=== PATIENT | female | born 1975 | race African-American/Black ===

== ENCOUNTER 2016-12-21 08:17 | Emergency (ER) | payer MEDICAID, OTHER ==
[~2016-12-21] VITALS: Ht 160 cm; Wt 78.1 kg
[2016-12-21 08:18] VITALS: Ht 160 cm; Wt 78.1 kg
--- NOTE | 2016-12-21 09:17 | RADRPT ---
PROCEDURE: US OB. CLINICAL INDICATION: Vaginal bleeding TECHNIQUE: Transabdominal and endovaginal imaging of the gravid uterus is available for review COMPARISON: None available FINDINGS: There is a single intrauterine demonstrating a heart rate of 159 bpm. The crown-rump roby th equals 4.47 cm, giving an estimated gestational age of 11 weeks 2 days by ultrasound criteria. N o subchorionic hemorrhage is identified. The ovaries are unremarkable. IMPRESSION: Single live intrauterine with an estimated gestational age of 11 weeks 2 days by ultrasoun d criteria and an estimated date of delivery of 07/10/2017. RPTAT: HH .Araceli Nicholas MD, MD Date Time Electronically viewed and signed by .Araceli Nicholas MD, on 12/21/2016 09:17 .G/
[2016-12-21 09:19] LABS: ADD SCAN DIFF NO
[2016-12-21 09:29] LABS: BASOPHILS % 0.4 % (0.0-2.0); EOSINOPHILS # 0.1 10^3/ul (0.0-0.5); EOSINOPHILS % 1.2 % (0.0-7.0); HEMOGLOBIN 11.5 g/dl (12.0-16.0); LYMPHOCYTES # 1.3 10^3/ul (0.8-2.9); LYMPHOCYTES % 25.9 % (15.0-51.0); MEAN CORPUSCULAR HEMOGLOBIN 26.2 pg (29.0-33.0); MEAN CORPUSCULAR HGB CONC 31.9 g/dl (32.0-37.0); MEAN PLATELET VOLUME 9.2 fl (7.4-10.4); MONOCYTE # 0.5 10^3/ul (0.3-0.9); MONOCYTES % 10.6 % (0.0-11.0); NEUTROPHILS % 61.5 % (39.0-77.0); PLATELET COUNT 274 10^3/UL (140-415); RED BLOOD COUNT 4.39 10^6/ul (4.20-5.40); RED CELL DISTRIBUTION WIDTH 13.3 % (11.5-14.5); WHITE BLOOD COUNT 4.8 10^3/ul (4.8-10.8)
[2016-12-21 09:49] LABS: ADD UMIC YES; URINE BILIRUBIN (Dip) NEGATIVE (NEGATIVE); URINE BLOOD (Dip) 3+ (NEGATIVE); URINE COLOR LT. YELLOW (YELLOW); URINE GLUCOSE (Dip) NEGATIVE (NEGATIVE); URINE KETONES (Dip) NEGATIVE (NEGATIVE); URINE LEUKOCYTE ESTERASE (Dip) NEGATIVE (NEGATIVE); URINE NITRITE (Dip) NEGATIVE (NEGATIVE); URINE TOTAL PROTEIN (Dip) NEGATIVE (NEGATIVE); URINE UROBILINOGEN (Dip) 0.2 E.U./dL (0.1-1.0)
[2016-12-21 10:01] LABS: BACTERIA,URINE MANY
[2016-12-21] MEDS ORDERED: FER325 PO (11:00)
--- NOTE | 2016-12-21 11:07 | ERD ---
ER Documentation Chief Complaint Date/Time DATE: 12/21/16 TIME: 11:05 Chief Complaint 11 weeks bleeding HPI 41-year-old female is approximately 11 weeks , 2 comes to the emergency room vaginal being that occurred this morning. She states that she passed a small blood, she is continuing to have mild bleeding. She has suprapubic pelvic cramping also goes to her back as well. Her ultrasound was done with her OB yesterday afternoon that was normal. According to her ultrasound her last menstrual period was in October however she recalls that her last menstrual period was in September 2016. She denies any fevers, chills, dizziness or shortness of breath. ROS All systems reviewed and are negative except as per history of present illness. Medications Home Meds Active Scripts Ferrous Sulfate* (Ferrous Sulfate*) 325 Mg Tabec, 325 MG PO BID, #90 TAB Prov:MARQUEZ MESSER PA-C 12/21/16 Allergies Allergies: Coded Allergies: No Known Allergy (Verified Allergy, Unknown, 09/11/07) PMhx/Soc Hx Alcohol Use: No Hx Substance Use: No Hx Tobacco Use: No Smoking Status: Never smoker Physical Exam Vitals Vital Signs Date Time Temp Pulse Resp B/P Pulse Ox O2 Delivery O2 Flow Rate FiO2 12/21/16 08:18 98.1 92 18 139/90 99 Physical Exam Const: [] Head: Atraumatic Eyes: Normal Conjunctiva ENT: Normal External Ears, Nose and Mouth. Neck: Full range of motion..~ No meningismus. Resp: Clear to auscultation bilaterally Cardio: Regular rate and rhythm, no murmurs Abd: Soft, non tender, non distended. Normal bowel sounds Skin: No petechiae or rashes Back: No midline or flank tenderness Ext: No cyanosis, or edema Neur: Awake and alert Psych: Normal Mood and Affect Result Diagram: 12/21/16 0912 Results 24 hrs Laboratory Tests Test 12/21/16 09:12 12/21/16 09:15 White Blood Count 4.810^3/ul Red Blood Count 4.3910^6/ul Hemoglobin 11.5g/dl Hematocrit 36.0% Mean Corpuscular Volume 82.0fl Mean Corpuscular Hemoglobin 26.2pg Mean Corpuscular Hemoglobin Concent 31.9g/dl Red Cell Distribution Width 13.3% Platelet Count 61263^3/UL Mean Platelet Volume 9.2fl Neutrophils % 61.5% Lymphocytes % 25.9% Monocytes % 10.6% Eosinophils % 1.2% Basophils % 0.4% Nucleated Red Blood Cells % 0.0/100WBC Neutrophils # 3.010^3/ul Lymphocytes # 1.310^3/ul Monocytes # 0.510^3/ul Eosinophils # 0.110^3/ul Basophils # 0.010^3/ul Nucleated Red Blood Cells # 0.010^3/ul Beta HCG, Quantitative 61448.0mIU/ml Urine Color LT. YELLOW Urine Clarity CLEAR Urine pH 7.0 Urine Specific [place] 1.010 Urine Ketones NEGATIVE Urine Nitrite NEGATIVE Urine Bilirubin NEGATIVE Urine Urobilinogen 0.2 E.U./dL Urine Leukocyte Esterase NEGATIVE Urine Microscopic RBC 10-25/HPF Urine Microscopic WBC 5-10/HPF Urine Epithelial Cells MODERATE Urine Amorphous Phosphates MANY Urine Bacteria MANY Urine Hemoglobin 3+ Urine Glucose NEGATIVE% Urine Total Protein NEGATIVE PROCEDURE: US OB. CLINICAL INDICATION: Vaginal bleeding TECHNIQUE: Transabdominal and endovaginal imaging of the gravid uterus is available for review COMPARISON: None available FINDINGS: There is a single intrauterine demonstrating a heart rate of 159 bpm. The crown-rump length equals 4.47 cm, giving an estimated gestational age of 11 weeks 2 days by ultrasound criteria. No subchorionic hemorrhage is identified. The ovaries are unremarkable. IMPRESSION: Single live intrauterine with an estimated gestational age of 11 weeks 2 days by ultrasound criteria and an estimated date of delivery of 2016. RPTAT: HH .Araceli Nicholas MD, Date Time Electronically viewed and signed by .Araceli Nicholas MD, on 12/21/2016 09 :17 .G/ CC: MARQUEZ MESSER PA-C Procedures/MDM 41-year-old female presents with vaginal bleeding, differential diagnosis includes threatened versus incomplete versus missed . Pelvic ultrasound shows a single live intrauterine 11 weeks and 2 days, no adnexal masses. She was given strict ER return precautions, also was advised that there is possibly a miscarriage secondary to bleeding. She will be given copies of her blood work as well as her ultrasound. Her type and Rh is O+, there is no indication for RhoGam. She is hemodynamically stable, there are no signs of hemorrhage or hemodynamic instability. She was asked to recheck closely with her OB. Departure Diagnosis: Primary Impression: Vaginal bleeding in patient at less than 20 weeks ges... Condition: Good Patient Instructions: Bleeding During Early Additional Instructions: Patient was advised to follow-up with their OB in 3-4 days for a recheck examination. If they were to develop any worsening symptoms sooner, including heavy vaginal bleeding or pelvic pain, they are to return to the ER for further evaluation. MARQUEZ MESSER PA-C December 21, 2016 11:07
[2016-12-21 11:15] VITALS: BP 132/70; PULSE 64; RESP 18; TEMP 97.9
== END 2016-12-21 11:15 | disposition home or self-care (01) ==
LOC: FTE 08:17
DX: O20.9 Hemorrhage in early pregnancy, unspecified (principal); R10.2 Pelvic and perineal pain; Z3A.11 11 weeks gestation of pregnancy
CPT/HCPCS: 36415; 76801; 81001; 81003; 84702; 85025; 86900; 86901

== ENCOUNTER 2017-04-14 10:43 | Outpatient (CLI) | payer MEDICAID, OTHER ==
[~2017-04-14] VITALS: Ht 167.6 cm; Wt 72.1 kg
[~2017-04-14 10:43] MED LIST: FER325 PO
[2017-04-14 11:36] VITALS: Ht 167.6 cm; Wt 72.1 kg
[2017-04-14 11:37] VITALS: BP 131/71; PULSE 85; RESP 20
--- NOTE | 2017-04-14 12:26 | PN ---
Triage Information Date/Time Reason for visit: Shoulder pain Weeks of Gestation 27 week /Para G 2 P1 Diabetes: none Hypertention: none Objective Vital Signs Date Time Temp Pulse Resp B/P Pulse Ox O2 Delivery O2 Flow Rate FiO2 04/14/17 11:37 98.0 85 20 131/71 Room Air Heart Rate: 130's Assessment/Plan Recommended biophysical profile if result is 8/8 she can be sent to the emergency room for elevation of her shoulder pain SHAI CHAN MD Apr 14, 2017 12:26
--- NOTE | 2017-04-14 12:34 | RADRPT ---
PROCEDURE: US OB. CLINICAL INDICATION: Low RIGOBERTO TECHNIQUE: Transabdominal views of the pelvis are available for review. COMPARISON: None. FINDINGS: There is a single intrauterine gestation in a breech position. The heart rate is present at 121 bpm. The placenta is anterior. There is no evidence of placenta previa or a placental abruption. The RIGOBERTO measures 13.6 cm. RPTAT: AA IMPRESSION: Normal RIGOBERTO of 13.6 cm. Breech presentation. Physician Adin Date Time Electronically viewed and signed by Gerson Britt Physician on 04/14/2017 12:34 RA/
--- NOTE | 2017-04-14 13:48 | TRIAGE ---
OB Triage Datetime Report Generated by CPN: 04/14/2017 13:48 Datetime: 04/14/2017 12:54 Labor Evaluation Frequency: occasional irritability Monitor Mode: External Quality: Mild Resting Tone [place]: Relaxed Contraction Comments: pt does not feel contractions, or cramping. denies leaking or bleeding from vagina. pt dschged after u/s and monitoring. Heart Rate FHR Baseline Rate: 130 Monitor Mode: External US FHR Baseline Changes: No Baseline Change Variability: Moderate 6-25 bpm Accelerations: 15X15 Decelerations: None Category: Category I Datetime: 04/14/2017 11:46 Labor Evaluation Frequency: 0 Monitor Mode: External Resting Tone [place]: Relaxed Heart Rate FHR Baseline Rate: 130 Monitor Mode: External US FHR Baseline Changes: No Baseline Change Variability: Moderate 6-25 bpm Accelerations: 15X15 Decelerations: None Category: Category I Datetime: 04/14/2017 11:25 Assessment Type: Triage Time of Arrival: 04/14/2017 10:35 EGA: 27.3 Arrived From: Home Chief Complaint: pain in left shoulder Movement: Present Contractions: Denies/Absent Rupture of Membranes: Denies Vaginal Bleeding: None Vaginal Discharge: Denies Recent Sexual Intercouse: Denies Abdominal Trauma: Not Applicable Patient Complaints: Other Time Provider Notified: 04/14/2017 11:02 Provider Notified: jennifer Maternal Assessment Level of Consciousness: Fully Conscious DTR's/Clonus: DTRs 2+; No Clonus Headache: Denies Blurred Vision: No Respiratory Effort: Unlabored; Regular Rhythm; Equal Expansion Breath Sounds, Left: Clear and Equal Breath Sounds, Right: Clear and Equal Nausea/Vomiting: Denies RUQ Epigastric Pain: Denies Facial Edema: None Fall Risk Assessment History of Falling: (0) No Secondary Diagnosis: (0) No Ambulatory Aid: (0) Bedrest/Nurse Assist IV Therapy: (0) No Gait: (0) Normal/Bedrest/Immobile Mental Status: (0) Oriented to Own Ability Fall Score: 0 Fall Risk Score Definition: No Risk: No action required
[2017-04-14] MEDS ORDERED: TYL500 PO (17:30)
== END 2017-04-14 13:40 | disposition home or self-care (01) ==
LOC: OBT 10:43 → L-D 10:44 → OBT 13:40
PROVIDERS: ATTEND Obstetrics & Gynecology
DX: O26.892 Other specified pregnancy related conditions, second trimester (principal); Z3A.27 27 weeks gestation of pregnancy; M25.512 Pain in left shoulder
CPT/HCPCS: 76815; Z7500; G0463

== ENCOUNTER 2017-04-14 13:55 | Emergency (ER) | payer MEDICAID ==
[~2017-04-14] VITALS: Ht 167.6 cm; Wt 73.0 kg
[2017-04-14 14:17] VITALS: Ht 167.6 cm; Wt 73.0 kg
[2017-04-14] MEDS ORDERED: ACETAMINOPHEN 500 MG TAB PO STA (16:53)
[2017-04-14] MEDS ORDERED: TYL500 PO (17:30)
--- NOTE | 2017-04-14 17:38 | ERD ---
ER Documentation Chief Complaint Date/Time DATE: 04/14/17 TIME: 17:32 Chief Complaint LT SHOURDER PAIN SINCE YESTERDAY , 23 WEEKS PREG , CLEARED BY OB HPI This is a 42-year-old female that presents to the ER with left shoulder pain that started yesterday. Patient states that her shoulder pain is severe and radiates down her entire arm. She denies any numbness or tingling of her arm. She did admit to chest pain however denies any shortness of breath. Pain is worse whenever she tries to lift up her shoulder. She did not have any trauma. Patient is currently 27 weeks she denies any vaginal bleeding, vaginal discharge or pelvic pain. Patient denies any urinary frequency or dysuria. She denies any epigastric pain or right upper quadrant pain. ROS 12 point review of systems was done, all negative except per HPI. Medications Home Meds Active Scripts Acetaminophen* (Tylenol*) 500 Mg Tab, 1000 MG PO Q8H Y for PAIN AND OR ELEVATED TEMP for 5 Days, TAB Prov:CAT SORTO 04/14/17 Ferrous Sulfate* (Ferrous Sulfate*) 325 Mg Tabec, 325 MG PO BID, #90 TAB Prov:MARQUEZ MESSER PA-C 12/21/16 Allergies Allergies: Coded Allergies: No Known Allergy (Verified , 09/11/07) PMhx/Soc History of Surgery: No Anesthesia Reaction: No Hx Neurological Disorder: No Hx Respiratory Disorders: No Hx Cardiac Disorders: No Hx Psychiatric Problems: No Hx Miscellaneous Medical Probl: No Hx Alcohol Use: No Hx Substance Use: No Hx Tobacco Use: No Smoking Status: Never smoker Physical Exam Vitals Vital Signs Date Time Temp Pulse Resp B/P Pulse Ox O2 Delivery O2 Flow Rate FiO2 04/14/17 14:17 97.1 93 18 122/63 98 Physical Exam GENERAL: The patient is well developed and appropriate for usual state of health , in no apparent distress. HEENT: Atraumatic. CHEST: Clear to auscultation bilaterally. There are no rales, wheezes or rhonchi. HEART: Regular rate and rhythm. No murmurs, clicks, rubs or gallops. ABDOMEN: Soft, nontender and nondistended. EXTREMITIES: Right shoulder: The right shoulder is without obvious asymmetry or deformity when compared to the left shoulder. There is no surface trauma, ecchymosis or crepitus. No erythema warmth or swelling. Not tender to palpation over the clavicle, AC joint, acromion patient is tender to palpation to the scapula. Not tender to palpation over the bicipital groove or soft tissues. Not tender to palpation of the muscles of the sternocleidomastoid, tender to palpation over the pectoralis, not tender to palpation over the biceps triceps, tender to palpation over the deltoid and trapezius tender along the rotator cuff. Patient has painful extension of the left elbow painful internal rotation painful abduction. Unable to perform drop arm test secondary to pain. No axillary tenderness or lymphadenopathy. Nerve normal sensation over the deltoid distal motor neurovascular status is intact. Patient has full and nonpainful range of motion of the elbow and wrist. NEURO: Alert and oriented. Cranial nerves II through XII are intact. Motor strength in all 4 extremities with 5/5 strength. Sensation grossly intact. Normal speech and gait. SKIN: There is no apparent rash or petechia. The skin is warm and dry. Results 24 hrs Current Medications Medications (Trade) Dose Ordered Sig/Tahir Route PRN Reason Start Time Stop Time Status Last Admin Dose Admin Acetaminophen (Tylenol Tab) 1,000 mg ONCE STAT PO 04/14/17 16:53 04/14/17 16:54 DC 04/14/17 17:00 Procedures/MDM Differential diagnosis includes but is not limited to fracture, dislocation, AC separation, rotator cuff test, bursitis, tendinitis, AAA, CAD, cholecystitis, acute UT. This is a 42-year-old female presents here with left shoulder pain that started yesterday. At this time suspicion for cardiac etiology is low patient did complain of some chest pain, however was reproducible on physical examination associated with shoulder pain. EKG was done [address] elevation or T-wave inversion EKG was signed by Dr. Burdick. Patient did not have any shortness of breath she denied any abdominal pain suspicion for referred acute abdominal pain is low. Patient has not had any trauma therefore I doubt fracture dislocation at this time benefits outweighed the risks of obtaining x- ray as patient is currently . Through shared medical decision-making patient wanted to try Tylenol in a sling before getting any sort of imaging that may affect the baby. Patient was put in a sling, she was neurovascularly intact before and after sling application, he will be sent home with Tylenol. She is to follow-up with her primary care doctor within 1-2 days or return to ER sooner if symptoms worsen. My medical decision making was shared with the patient she understands and agrees with plan. Departure Diagnosis: Primary Impression: Shoulder pain Condition: Stable Patient Instructions: Shoulder Problems Additional Instructions: Call your primary care doctor TOMORROW for an appointment during the next 1-2 days.See the doctor sooner or return here if your condition worsens before your appointment time. CAT SORTO Apr 14, 2017 17:38
== END 2017-04-14 18:46 | disposition home or self-care (01) ==
LOC: FTE 13:55
DX: M25.512 Pain in left shoulder (principal); R07.9 Chest pain, unspecified
CPT/HCPCS: 93005; Z7502; Z7610

== ENCOUNTER 2017-07-13 12:28 | Inpatient (IN) | payer MEDICAID ==
[~2017-07-13] VITALS: Ht 167.6 cm; Wt 76.4 kg
[~2017-07-13 12:28] MED LIST changes: +TYL500 PO
[2017-07-13 12:37] VITALS: Ht 167.6 cm; Wt 76.4 kg
[2017-07-13 12:38] VITALS: BP 124/74; PULSE 95; RESP 18
--- NOTE | 2017-07-13 13:53 | RADRPT ---
PROCEDURE: Biophysical profile CLINICAL INDICATION: distress. TECHNIQUE: Color and correa-scale ultrasound images of an intrauterine gestation were obtained. COMPARISON: OB ultrasound April 14, 2017 FINDINGS: A single live intrauterine gestation is identified in breech position with an estimated heart rate of 146 beats per minute. The placenta is located anteriorly and has a grade III. The cervix i s obscured by body shadows. No evidence of previa or abruption identified. RIGOBERTO is 13.9 cm. movement 2/2. tone 2/2. breathing movement 2/2. Qualitative AFV 2/2 Total biophysical profile 03/19 IMPRESSION: 03/19 biophysical profile. RPTAT: AA .Bora Tarango MD, Date Time Electronically viewed and signed by .Bora Tarango MD, on 07/13/2017 13:52 .P/
--- NOTE | 2017-07-13 14:03 | TRIAGE ---
OB Triage Datetime Report Generated by CPN: 07/13/2017 14:03 Datetime: 07/13/2017 14:00 Vaginal Exam Dilatation (cms): 0.0 Exam By: FOROOHAR Datetime: 07/13/2017 13:30 Stage of : OB Triage Maternal Assessment Level of Consciousness: Fully Conscious Labor Evaluation Frequency: 5-10 Monitor Mode: External Duration (sec)2399: 50-110 Quality: Mild Resting Tone [place]: Relaxed Heart Rate FHR Baseline Rate: 135 Monitor Mode: External US Variability: Moderate 6-25 bpm Accelerations: 15X15 Decelerations: None Pain Assessment Pain Goal: 3 Membrane Status: Intact Vaginal Bleeding: None Datetime: 07/13/2017 12:35 Assessment Type: Triage Maternal Assessment Level of Consciousness: Fully Conscious DTR's/Clonus: DTRs 2+; No Clonus Headache: Denies Blurred Vision: No Respiratory Effort: Unlabored; Regular Rhythm; Equal Expansion Breath Sounds, Left: Clear and Equal Breath Sounds, Right: Clear and Equal Nausea/Vomiting: Denies RUQ Epigastric Pain: Denies Lower Extremities Edema: None Degree: None Upper Extremities Edema: None Degree: None Facial Edema: None Fall Risk Assessment History of Falling: (0) No Secondary Diagnosis: (0) No Ambulatory Aid: (0) Bedrest/Nurse Assist IV Therapy: (0) No Gait: (0) Normal/Bedrest/Immobile Mental Status: (0) Oriented to Own Ability Fall Score: 0 Fall Risk Score Definition: No Risk: No action required Datetime: 07/13/2017 12:34 Time of Arrival: 07/13/2017 12:23 EGA: 40.2 Arrived By: Ambulatory Arrived From: Home Chief Complaint: pt here c/o DFM Movement: Absent Contractions: Denies/Absent Rupture of Membranes: Denies Vaginal Bleeding: None Vaginal Discharge: Denies Recent Sexual Intercouse: Yes Abdominal Trauma: Not Applicable Patient Complaints: None Time Provider Notified: 07/13/2017 13:50 [facility] Initial Plan: NST/BPP/SVE Datetime: 07/13/2017 12:32 Monitor Mode: External Monitor Mode: External US Datetime: 04/14/2017 11:25 EGA: 27.3 Fall Score: 0 Fall Risk Score Definition: No Risk: No action required
[2017-07-13] MEDS ORDERED: METHYLERGONOVINE 0.2 MG INJ IM PRN (14:30)
[2017-07-13] MEDS ORDERED: MISOPROSTOL 200 MCG TAB PR PRN (14:30)
[2017-07-13] MEDS ORDERED: CARBOPROST 250 MCG INJ IM PRN (14:30)
[2017-07-13] MEDS ORDERED: OXYTOCIN 30 UNITS/LR 500 ML IV PRN (14:30)
[2017-07-13] MEDS ORDERED: OXYTOCIN 30 UNITS/LR 500 ML IV SCH (14:30)
[2017-07-13] MEDS: LACTATED RINGER'S 1,000 ML IV SCH ×3 (15:15→17:09)
[2017-07-13 15:23] LABS: BASOPHILS % 0.2 % (0.0-2.0); EOSINOPHILS % 0.7 % (0.0-7.0); HEMATOCRIT 27.4 % (37.0-47.0); HEMOGLOBIN 9.1 g/dl (12.0-16.0); LYMPHOCYTES # 1.3 10^3/ul (0.8-2.9); LYMPHOCYTES % 21.9 % (15.0-51.0); MEAN CORPUSCULAR HEMOGLOBIN 26.5 pg (29.0-33.0); MEAN CORPUSCULAR HGB CONC 33.2 g/dl (32.0-37.0); MEAN CORPUSCULAR VOLUME 79.7 fl (82.0-101.0); MEAN PLATELET VOLUME 10.2 fl (7.4-10.4); MONOCYTE # 0.9 10^3/ul (0.3-0.9); MONOCYTES % 14.5 % (0.0-11.0); NEUTROPHIL # 3.7 10^3/ul (1.6-7.5); NEUTROPHILS % 62.4 % (39.0-77.0); PLATELET COUNT 273 10^3/UL (140-415); RED BLOOD COUNT 3.44 10^6/ul (4.20-5.40); RED CELL DISTRIBUTION WIDTH 14.5 % (11.5-14.5)
[2017-07-13 15:41] LABS: INR 0.96; PROTIME 12.9 Sec (11.9-14.9)
[2017-07-13 15:42] LABS: PARTIAL THROMBOPLASTIN TIME 22.6 Sec (25.0-35.0)
[2017-07-13] MEDS ORDERED: CITRIC ACID/NA CITRATE 30 ML CUP ONE (15:49)
[2017-07-13] MEDS ORDERED: ONDANSETRON 4 MG INJ ONE (15:49)
[2017-07-13] MEDS ORDERED: ONDANSETRON 4 MG INJ IV ONE (16:30)
[2017-07-13] MEDS ORDERED: CITRIC ACID/SODIUM CITRATE 15 ML CUP PO ONE (16:30)
[2017-07-13] MEDS ORDERED: morphine SULFATE/PF (10 MG/10 ML) INJ ONE (18:03)
[2017-07-13] MEDS ORDERED: PHENYLephrine (100 MCG/ML) 5ML SYG ONE ×2 (18:06→19:19)
--- NOTE | 2017-07-13 18:30 | HP ---
Date/Time of Note Date/Time of Note DATE: 07/13/17 TIME: 18:09 OB - History Hx of Present Free Text/Dictation 42 years old female 2 para 0 EDC July 11, 2017 admitted to [facility] at 40 weeks and 2 /7 days, diagnosed with breech presentation, being prepared to undergo primary , indication of the surgery including the complication of , bowel bladder injury wound hematoma and infection explained, since her hemoglobin is 9.1 hematocrit 27.3 possibility of blood transfusion as well as reaction to transfusion explained to her and she agreed to receive the 2 units of packed cells. Chief Complaint: 40 weeks 2/7 day breech Estimated Due Date: Jul 11, 2017 : 2 Para: 1 Care: Good Care Ultrasounds: Normal mid trimester US Obstetrical Complications: None Medical Complications: None Past Family/Social History * Past Medical, Surgical, Family and Obstetric Histories reviewed from chart. Rubella: immune RPR/VDRL: Negative GBS Status: Negative HBsAG: Negative OB Admission Exam Vital Signs Vital Signs Vital Signs Date Time Temp Pulse Resp B/P Pulse Ox O2 Delivery O2 Flow Rate FiO2 07/13/17 12:38 98.0 95 18 124/74 100 Room Air Physical Exam HEENT: WNL Heart: Rhythm Normal Lungs: Clear, Equal Abdomen: WNL Extremities: Normal Reflexes: Normal Cervical Dilatation: None Membranes: Intact Accelerations: Accelerations Present Decelerations: No Decelerations Intensity: Mild Last 72 hours Lab Results CBC & BMP 07/13/17 15:05 OB Assessment/Plan Reason for admission: other (40 weeks 2 days breech presentation) Other plan: . 42 years old EDC July 11 admitted to the hospital diagnosed with breech presentation being prepared to undergo primary , she is also anemic her hemoglobin is 9 hematocrit 27 possibility of 2 units of packed cell blood transfusion discussed with the patient she agreed to receive blood transfusion Complication of section including but not limited to bowel bladder injury wound infection and hematoma explained , all her questions answered we will proceed with the operation. SHAI CHAN MD Jul 13, 2017 18:20
[2017-07-13] MEDS: CEFAZOLIN 2 GM/50 ML (PMX) 50 ML IV SCH ×2 (18:35→19:21)
[2017-07-13] MEDS ORDERED: FENTAnyl 50 MCG/ML VIAL ONE (19:02)
[2017-07-13] MEDS ORDERED: SOD CHLORIDE 0.9% 1,000 ML IV ONE ×2 (19:30→20:00)
--- NOTE | 2017-07-13 19:34 | OPR ---
Operative Report Planned Procedure Free Text/Dictation Number second 2017 at 7:25 PM Procedure date Jul 13, 2017 Procedure(s) Primary for breech presentation Performed by see signature line Rolfer PADMAJA HENDERSON Anesthesiologist: CHATA MARQUES Pre-procedure diagnosis 40 weeks breech presentation Anesthesia Type: spinal Post-Procedure Post-procedure diagnosis 40 weeks breech presentation Findings Live Baby girl 8 and 9 Estimated Blood Loss: 500 - 600 mls Specimen(s) none Grafts/Implant(s) none Complication(s) none Pt Condition post procedure: stable Procedure Description Under satisfactory spinal anesthesia patient prepped and draped and placed in supine position. Pfannenstiel incision was made. Incision carried through the subcutaneous tissue. Fascia incised to the length of incision. Rectus muscle divided in midline. Peritoneum exposed and entered to a vertical incision. Exploration of abdomen revealed [gravid uterus at term normal-appearing tubes and ovaries.] Bladder flap was developed. Transverse incision was made in the lower segment of the uterus. Amniotic sac ruptured, meconium stain amniotic fluid note. Live baby girl was delivered from [place] breech delivered by assisted breech extraction shoulders delivered without any difficulty head delivered with Mauriceau maneuver.Naso oropharyngeal suction was performed. Baby handed to the team for immediate attention. Patient received 20 units of Pitocin. Placenta delivered manually intact. Uterine cavity cleaned with a wet sponge and drainage established. Uterus closed in 2 layers using Monocryl #1 in continuous fashion. Peritoneal cavity irrigated with warm saline. Sponge needle instrument reported to be correct. Abdominal peritoneum closed with 2-0 chromic catgut continuously. Fascia closed with #1 PDS in a continuous fashion. Subcutaneous tissue irrigated with warm saline and approximated with 2-0 chromic catgut skin closed with N sorb. Estimated blood loss [6-700 cc]. Urine bag containing [200] mL of [clear] urine. Patient tolerated procedure well and transferred to recovery room in good condition. SHAI CHAN MD Jul 13, 2017 19:34
[2017-07-13] MEDS ORDERED: NALOXONE (0.4 MG/ML) INJ IV PRN (21:30)
[2017-07-13] MEDS ORDERED: HYDROmorphONE (0.2 MG/ML) 10ML SYG IV PRN ×2 (21:30)
[2017-07-13] MEDS ORDERED: ZOLPIDEM 5 MG TAB PO PRN (21:30)
[2017-07-13] MEDS ORDERED: HYDROmorphONE 0.5 MG/0.5 ML SYG IV PRN ×2 (21:30)
[2017-07-13] MEDS ORDERED: DIPHENHYDRAMINE 50 MG INJ IV PRN (21:30)
[2017-07-13] MEDS ORDERED: KETOROLAC 30 MG INJ IV PRN (21:30)
[2017-07-13] MEDS ORDERED: FENTAnyl 50 MCG/ML VIAL IV PRN ×2 (21:30)
[2017-07-13] MEDS ORDERED: ONDANSETRON 4 MG INJ IV PRN ×2 (21:30)
[2017-07-13] MEDS ORDERED: METOCLOPRAMIDE 10 MG INJ IV PRN (21:30)
[2017-07-13 23:51] VITALS: BP 117/62; PULSE 77; RESP 18
[2017-07-14] MEDS ORDERED: LANOLIN 7 GM TUBE TOP PRN
[2017-07-14] MEDS ORDERED: MISOPROSTOL 200 MCG TAB PR PRN
[2017-07-14] MEDS ORDERED: METHYLERGONOVINE 0.2 MG INJ IM PRN
[2017-07-14] MEDS ORDERED: CEFAZOLIN 1 GM/50 ML (PMX) 50 ML IVPB SCH
[2017-07-14] MEDS ORDERED: OXYTOCIN 30 UNITS/LR 500 ML IV PRN
[2017-07-14] MEDS ORDERED: CARBOPROST 250 MCG INJ IM PRN
[2017-07-14] MEDS: DIPHENHYDRAMINE 50 MG INJ IV PRN ×3 (00:02→12:21)
[2017-07-14] MEDS: OXYTOCIN 30 UNITS/LR 500 ML IV SCH ×7 (00:02→23:36)
[2017-07-14 00:50] VITALS: BP 116/57; PULSE 71; RESP 18
[2017-07-14] MEDS: KETOROLAC 30 MG INJ IV PRN ×2 (03:47→14:20)
[2017-07-14 04:00] VITALS: BP 98/57; PULSE 68; RESP 18
[2017-07-14 07:30] VITALS: BP 108/57; PULSE 81; RESP 19
[2017-07-14] MEDS: SENNA/DOCUSATE NA (8.6MG/50MG) TAB PO SCH ×2 (09:00→21:00)
[2017-07-14 09:18] LABS: BASOPHILS % 0.2 % (0.0-2.0); EOSINOPHILS % 0.2 % (0.0-7.0); HEMATOCRIT 27.3 % (37.0-47.0); HEMOGLOBIN 9.3 g/dl (12.0-16.0); LYMPHOCYTES # 0.8 10^3/ul (0.8-2.9); LYMPHOCYTES % 9.1 % (15.0-51.0); MEAN CORPUSCULAR HEMOGLOBIN 27.7 pg (29.0-33.0); MEAN CORPUSCULAR HGB CONC 34.1 g/dl (32.0-37.0); MEAN CORPUSCULAR VOLUME 81.3 fl (82.0-101.0); MEAN PLATELET VOLUME 9.9 fl (7.4-10.4); MONOCYTE # 0.8 10^3/ul (0.3-0.9); MONOCYTES % 10.2 % (0.0-11.0); NEUTROPHIL # 6.6 10^3/ul (1.6-7.5); NEUTROPHILS % 80.1 % (39.0-77.0); PLATELET COUNT 179 10^3/UL (140-415); RED BLOOD COUNT 3.36 10^6/ul (4.20-5.40); RED CELL DISTRIBUTION WIDTH 14.2 % (11.5-14.5); WHITE BLOOD COUNT 8.2 10^3/ul (4.8-10.8)
[2017-07-14 12:00] VITALS: PULSE 83; RESP 19
--- NOTE | 2017-07-14 12:38 | QN ---
Documentation Comment Post day 1 Afebrile Vital signs are stable Abdomen soft, bowel sounds present, incision dry. Able to pass flatus, lochia normal, extremities normal, ambulation encouraged SHAI CHAN MD Jul 14, 2017 12:38
[2017-07-14 16:00] VITALS: BP 106/70; PULSE 86; RESP 19
[2017-07-14 20:00] VITALS: BP 108/60; PULSE 105; RESP 18
[2017-07-14] MEDS ORDERED: HYDROCODONE/APAP (5/325) TAB PO PRN ×2 (21:30)
[2017-07-14] MEDS ORDERED: OXYCODONE/ACETAMINOPHEN (5/325) TAB PO PRN ×2 (21:30)
[2017-07-15] MEDS: IBUPROFEN 600 MG TAB PO SCH ×5 (00:31→23:51)
[2017-07-15 04:00] VITALS: BP 98/58; PULSE 85; RESP 19
[2017-07-15 08:00] VITALS: BP 103/58; PULSE 76; RESP 17
[2017-07-15] MEDS: SENNA/DOCUSATE NA (8.6MG/50MG) TAB PO SCH ×2 (09:46→20:42)
--- NOTE | 2017-07-15 09:46 | QN ---
Documentation Comment Post day 2 Afebrile Vital signs are stable Abdomen soft, incision dry, bowel sounds present, no bowel movement, enema recommended. SHAI CHAN MD Jul 15, 2017 09:46
[2017-07-15] MEDS ORDERED: NA PHOSPHATE/BIPHOS 133 ML ENEMA PR ONE (10:00)
[2017-07-15 16:00] VITALS: BP 97/63; PULSE 81; RESP 16
[2017-07-15 19:20] VITALS: BP 116/70; PULSE 88; RESP 19
[2017-07-16 04:10] VITALS: BP 112/68; PULSE 77; RESP 20
[2017-07-16] MEDS: IBUPROFEN 600 MG TAB PO SCH ×2 (05:43→12:24)
[2017-07-16 08:09] VITALS: BP 137/61; PULSE 80; RESP 18
[2017-07-16] MEDS ORDERED: DIPHTH/TET/ACEL PERTUSS (ADULT) 0.5 ML VIAL IM* ONE (09:00)
[2017-07-16] MEDS: SENNA/DOCUSATE NA (8.6MG/50MG) TAB PO SCH (09:04)
--- NOTE | 2017-07-16 12:20 | PD.PPDC ---
CHIEF ARCHITECT Discharge Instruction Condition Patient Condition: Good Activity/Restrictions Activity: Normal Activity May Shower Restrictions: No Exercising No Lifting No Driving No Sexual Activity Nothing in the Vagina No [place] No Tampons, douche Wound/Drain Care Instructions Wound/Drain Care Instructions: Remove Steri Strips in 1 week Follow-up Follow-up with Physician: 1, Week/Weeks Provider Information: Post instructions given recommended to make appointment to be seen at the clinic in 1 week Return to clinic for BUSINESS RELATIONS MANAGER Instructions: Fever greater than 101 Chills Worsening abdominal pain Excessive Vaginal Bleeding More than 2 pads per hour Unable to tolerate diet OB Instructions: Breast Tenderness Depression Blurried Vision Headache Surgical Instructions: Incisional Drainage Incisional Redness SHAI CHAN MD Jul 16, 2017 12:20
--- NOTE | 2017-07-16 12:23 | DS ---
Date/Time of Note Date/Time of Note DATE: 07/16/17 TIME: 12:21 Discharge Summary Admission/Discharge Info Admit Date/Time Jul 13, 2017 at 14:10 Discharge Date/Time July 16, 2017 at 1230 Discharge Diagnosis Post primary day 3 Patient Condition: Good Procedures Primary for breech presentation Hx of Present Illness Term breech presentation Hospital Course Satisfactory recovery Home Meds Discontinued Scripts Acetaminophen* (Tylenol*) 500 Mg Tab, 1000 MG PO Q8H Y for PAIN AND OR ELEVATED TEMP for 5 Days, TAB Prov:CAT SORTO 04/14/17 Ferrous Sulfate* (Ferrous Sulfate*) 325 Mg Tabec, 325 MG PO BID, #90 TAB Prov:MARQUEZ MESSER PA-C 12/21/16 Follow-up Plan Post instruction given recommended to make appointment to be seen at the clinic in 1 week Primary Care Provider Care Physician No Primary Time spent on discharge: < 30 minutes Pending Labs Laboratory Tests Test 07/16/17 05:55 Lab Scanned Report BLOOD [id number] SHAI CHAN MD Jul 16, 2017 12:23
== END 2017-07-16 15:29 | disposition home or self-care (01) | DRG 766 ==
LOC: OBT 12:28 → L-D 12:29 → OBT 14:10 → L-D 18:08 → PP1 23:55
PROVIDERS: ADMIT Obstetrics & Gynecology; ATTEND Obstetrics & Gynecology
PROC: 3E033VJ Introduction of Other Hormone into Peripheral Vein, Percutaneous Approach (ICD-10-PCS; 2017-07-13)
PROC: 10D00Z1 Extraction of Products of Conception, Low, Open Approach (ICD-10-PCS; principal; 2017-07-13 18:45)
DX: O48.0 Post-term pregnancy (principal); O99.02 Anemia complicating childbirth; Z3A.40 40 weeks gestation of pregnancy; O32.1XX0 Maternal care for breech presentation, not applicable or unspecified; Z37.0 Single live birth
CPT/HCPCS: 36430; 76818; 85025; 85610; 85730; 86592; 86850; 86900; 86901; 86920; 87340; 90715; 94760; 99464; G0463; J0690; J1200; J1885; J2274; J2370; J2405; J2590; J3010; J7030; J7120; P9016

== ENCOUNTER 2018-01-26 20:44 | Emergency (ER) | END 2018-01-27 00:02 | disposition home or self-care (01) ==

== ENCOUNTER 2018-11-30 17:06 | Emergency (ER) | payer OTHER ==
[~2018-11-30] VITALS: Wt 83.0 kg
[~2018-11-30 17:06] MED LIST changes: -FER325 PO; +IBUP-1542 PO; -TYL500 PO
[2018-11-30] MEDS ORDERED: KETOROLAC 30 MG INJ IV STA (18:46)
[2018-11-30] MEDS ORDERED: FAMO-96 PO (20:05)
--- NOTE | 2018-11-30 20:19 | ERD ---
ER Documentation Chief Complaint Chief Complaint BACK PAIN SINCE SATURDAY HPI Patient is a 43-year-old female presents ER for concerns of epigastric pain which started 3 days ago. Patient states the pain starts in her epigastric region and radiates to her sides and to her back. Patient states she feels a sharp pain. Patient denies any chest pain or shortness of breath. Patient denies any left upper extremity pain, diaphoresis, or LOC. Patient denies eating any fried or spicy foods. Patient denies any alcohol use. Patient s tates she did vomit once 2 days ago however she denied any additional episodes. Patient denies any diarrhea. Patient denies any urinary symptoms. Patient has not tried any medications for symptoms. ROS All systems reviewed and are negative except as per history of present illness. Medications Home Meds Active Scripts Famotidine* (Pepcid*) 20 Mg Tablet, 20 MG PO QHS for 30 Days, TAB Prov:BISI THOMAS PA-C 11/30/18 Ibuprofen* (Motrin*) 600 Mg Tab, 600 MG PO Q6, #30 TAB Prov:GEORGE BALLESTEROS PA-C 01/26/18 Allergies Allergies: Coded Allergies: No Known Allergy (Verified , 09/11/07) PMhx/Soc History of Surgery: Yes () Anesthesia Reaction: No Hx Neurological Disorder: No Hx Respiratory Disorders: No Hx Cardiac Disorders: No Hx Psychiatric Problems: No Hx Miscellaneous Medical Probl: Yes (anemia) Hx Alcohol Use: No Hx Substance Use: No Hx Tobacco Use: No Smoking Status: Never smoker FmHx Family History: No diabetes Physical Exam Vitals Vital Signs Date Temp Pulse Resp B/P (MAP) Pulse Ox O2 O2 Flow FiO2 Time Delivery Rate 11/30/18 97.6 83 18 123/62 99 17:10 (82) Physical Exam GENERAL: Well-developed, well-nourished female. Appears in no acute distress. HEAD: Normocephalic, atraumatic. EYES: Pupils are equally reactive bilaterally. EOMs grossly intact. No conjunctival erythema. ENT: Moist mucous membranes. No uvula deviation. No kissing tonsils. NECK: Supple. No meningismus. Normal range of motion of the neck. LUNG: Clear to auscultation bilaterally. No rhonchi, wheezing, rales or coarse b reath sounds. HEART: Regular rate and rhythm. No murmurs, rubs or gallops. Equal pulses in bilateral upper extremities. ABDOMEN: Soft and nondistended. Tender to palpation to the epigastric region. Positive bowel sounds in all four quadrants. No rebound tenderness, no guarding. (-) McBurney's point tenderness. No CVA tenderness. EXTREMITIES: Equal pulses bilaterally. No peripheral clubbing, cyanosis or edema. No unilateral leg swelling. NEUROLOGIC: Alert and oriented. Moving all four extremities without any difficulty. Normal speech. Steady gait. SKIN: Normal color. Warm and dry. No rashes or lesions. Result Diagram: 11/30/18190211/30/181902 Results 24 hrs Laboratory Tests Test 11/30/18 19:03 11/30/18 19:11 White Blood Count 6.0 10^3/ul Red Blood Count 4.23 10^6/ul Hemoglobin 10.8 g/dl Hematocrit 34.5 % Mean Corpuscular Volume 81.6 fl Mean Corpuscular Hemoglobin 25.5 pg Mean Corpuscular Hemoglobin Concent 31.3 g/dl Red Cell Distribution Width 13.7 % Platelet Count 295 10^3/UL Mean Platelet Volume 9.7 fl Immature Granulocytes % 0.200 % Neutrophils % 48.1 % Lymphocytes % 38.5 % Monocytes % 9.4 % Eosinophils % 2.8 % Basophils % 1.0 % Nucleated Red Blood Cells % 0.0 /100WBC Immature Granulocytes # 0.010 10^3/ul Neutrophils # 2.9 10^3/ul Lymphocytes # 2.3 10^3/ul Monocytes # 0.6 10^3/ul Eosinophils # 0.2 10^3/ul Basophils # 0.1 10^3/ul Nucleated Red Blood Cells # 0.0 10^3/ul Urine Color YELLOW Urine Clarity TURBID Urine pH 9.0 Urine Specific [place] 1.018 Urine Ketones NEGATIVE mg/dL Urine Nitrite NEGATIVE mg/dL Urine Bilirubin NEGATIVE mg/dL Urine Urobilinogen NEGATIVE mg/dL Urine Leukocyte Esterase NEGATIVE Howie/ul Urine Microscopic RBC 0 /HPF Urine Microscopic WBC 0 /HPF Urine Squamous Epithelial Cells FEW /HPF Urine Amorphous Crystals FEW /HPF Urine Hemoglobin NEGATIVE mg/dL Urine Glucose NEGATIVE mg/dL Urine Total Protein NEGATIVE mg/dl Sodium Level 140 mmol/L Potassium Level 3.7 mmol/L Chloride Level 107 mmol/L Carbon Dioxide Level 26 mmol/L Anion Gap 7 Blood Urea Nitrogen 11 mg/dl Creatinine 0.83 mg/dl Est Glomerular Filtrat Rate mL/min > 60 mL/min Glucose Level 101 mg/dl Calcium Level 10.4 mg/dl Total Bilirubin 0.2 mg/dl Direct Bilirubin 0.00 mg/dl Indirect Bilirubin 0.2 mg/dl Aspartate Amino Transf (AST/SGOT) 20 IU/L Alanine Aminotransferase (ALT/SGPT) 20 IU/L Alkaline Phosphatase 83 IU/L Troponin I < 0.012 ng/ml Total Protein 7.8 g/dl Albumin 4.1 g/dl Globulin 3.70 g/dl Albumin/Globulin Ratio 1.10 Lipase 87 U/L POC Beta HCG, Qualitative NEGATIVE Current Medications Medications Dose Sig/Tahir Start Time Status Last (Trade) Ordered Route PRN Stop Time Admin Dose Reason Admin Ketorolac 30 mg ONCE STAT 11/30/18 DC 11/30/18 Tromethamine IV 18:46 19:17 (Toradol) 11/30/18 18:48 Procedures/MDM ED COURSE: The patient was stable throughout ED course. I kept the patient and/or family informed of laboratory and diagnostic imaging results throughout the ED course. EKG: Read by Dr. Martinez attending physician. EKG shows normal sinus rhythm at a rate of 72 bpm No arrhythmias, acute ST elevations or T wave changes were noted. PROCEDURES: None. MEDICATIONS GIVEN: Toradol Patient tolerated medication well with no adverse reactions. Patient reported improvement in pain. MEDICAL DECISION MAKING: This is a 43-year-old male presents ER for concerns of epigastric pain times 3 days. Patient denies any associated fevers, chest pain, shortness of breath.. Vital signs were reviewed. Patient is afebrile. IV line established. Blood work was obtained. CBC showed no evidence of systemic infection. hemoglobin was noted to be 10.8, hematocrit of 34.5. No indication for emergent blood transfusion. CMP showed no evidence of electrolyte abnormalities, severe acidosis, alkalosis, renal failure, or liver disease. Troponin was within normal limits. Lipase showed no evidence of acute pancreatitis. UA showed no evidence of acute infection or hematuria. Urine test was negative. EKG showed normal sinus rhythm. Gallbladder ultrasound was within normal limits. Upon reexamination, patient had significant improvement in pain. At this time for the patient presentation most consistent with epigastric pain of unknown etiology. Patient was advised that she should follow-up with a GI specialist for further management of her symptoms. Patient may need an endoscopy. She will be given a prescription for Pepcid for concerns of possible gastritis versus GERD. Differential diagnosis included but was not limited to acute coronary syndrome, AAA, mesenteric ischemia, lower lobe pneumonia, DKA, bowel perforation, cholecystitis, choledocholithiasis, ascending cholangitis, hepatic abscess, pancreatitis, splenic rupture, diverticulitis, UTI, pyelonephritis, nephrolithiasis, appendicitis, constipation, , ectopic , PID, ovarian torsion or tubo-ovarian abscess. Patient was nontoxic, [id number] prior to discharge. PRESCRIPTIONS: Pepcid DISCHARGE: At this time, patient is stable for discharge and outpatient management. I have instructed the patient to follow-up with his/her primary care physician in 1-2 days. I have instructed the patient to promptly return to the ER at any time for any new or worsening symptoms including increased pain, nausea, vomiting, diarrhea, fever, weakness or LOC. The patient and/or family expressed understanding of and agreement with this plan. All questions were answered. Home care instructions were provided. Disclaimer: Inadvertent spelling and grammatical errors are likely due to EHR/dictation software use and do not reflect on the overall quality of patient care. Also, please note that the electronic time recorded on this note does not necessarily reflect the actual time of the patient encounter. Departure Diagnosis: Primary Impression: Epigastric pain Condition: Fair Patient Instructions: Epigastric Pain (Uncertain Cause) Referrals: [facility] YOU HAVE RECEIVED A MEDICAL SCREENING EXAM AND THE RESULTS INDICATE THAT YOU DO NOT HAVE A CONDITION THAT REQUIRES URGENT TREATMENT IN THE EMERGENCY DEPARTMENT. FURTHER EVALUATION AND TREATMENT OF YOUR CONDITION CAN WAIT UNTIL YOU ARE SEEN IN YOUR DOCTORS OFFICE WITHIN THE NEXT 1-2 DAYS. IT IS YOUR RESPONSIBILITY TO MAKE AN APPOINTMENT FOR FOLOW-UP CARE. IF YOU HAVE A PRIMARY DOCTOR --you should call your primary doctor and schedule an appointment IF YOU DO NOT HAVE A PRIMARY DOCTOR YOU CAN CALL OUR PHYSICIAN REFERRAL HOTLINE AT IF YOU CAN NOT AFFORD TO SEE A PHYSICIAN YOU CAN CHOSE FROM THE FOLLOWING [facility] CLINICS [facility] [address] [facility]. [facility] [address] [facility] [facility] [address] [facility]. [facility] [address] [facility]. [facility] [address] [facility]. [facility]. [address] [facility]. [facility] YOU HAVE RECEIVED A MEDICAL SCREENING EXAM AND THE RESULTS INDICATE THAT YOU DO NOT HAVE A CONDITION THAT REQUIRES URGENT TREATMENT IN THE EMERGENCY DEPARTMENT. FURTHER EVALUATION AND TREATMENT OF YOUR CONDITION CAN WAIT UNTIL YOU ARE SEEN IN YOUR DOCTORS OFFICE WITHIN THE NEXT 1-2 DAYS. IT IS YOUR RESPONSIBILITY TO MAKE AN APPOINTMENT FOR FOLOW-UP CARE. IF YOU HAVE A PRIMARY DOCTOR --you should call your primary doctor and schedule and appointment IF YOU DO NOT HAVE A PRIMARY DOCTOR YOU CAN CALL OUR PHYSICIAN REFERRAL HOTLINE AT . IF YOU CAN NOT AFFORD TO SEE A PHYSICIAN YOU CAN CHOSE FROM THE FOLLOWING [facility] INSTITUTIONS: [facility] [address] [place] [address] [facility] [address] [place] [address] [facility] [address] [place] [address] Additional Instructions: Follow-up with a GI specialist for further management of your symptoms. He may need endoscopy on an outpatient basis. Call your primary care doctor TOMORROW for an appointment during the next 1-2 days.See the doctor sooner or return here if your condition worsens before your appointment time. BISI THOMAS PA-C Nov 30, 2018 20:19
[2018-11-30 20:23] VITALS: BP 120/60; PULSE 75; RESP 20
== END 2018-11-30 20:24 | disposition home or self-care (01) ==
LOC: FTE 17:06
DX: R10.13 Epigastric pain (principal)
CPT/HCPCS: 36415; 76705; 80053; 81001; 81025; 83690; 84484; 85025; 93005; 96372; 99285; J1885